=== PATIENT | female | born 1965 | race Caucasian/White ===

== ENCOUNTER 2016-03-28 19:00 | Emergency (ER) | payer BC, SELFPAY ==
[2016-03-28] MEDS ORDERED: Promethazine HCl 25 MG/ML VIAL ONE (19:40)
[2016-03-28] MEDS ORDERED: Lidocaine Viscous Sol 2% 15 ml UD Cup ONE (19:40)
[2016-03-28] MEDS ORDERED: Mag-Al Plus 1200 MG/1200 MG/120 MG/30 ML UDCUP ONE (19:40)
[2016-03-28 19:54] LABS: ALT (SGPT) 16 U/L (0-55); AST (SGOT) 18 U/L (5-34); Alkaline Phosphatase 103 U/L (40-150); Anion Gap 13 mmol/L (10-20); BUN (Urea Nitrogen) 16 mg/dL (7.0-18.7); Bilirubin, Total 0.2 mg/dL (0.2-1.2); Calc. Creatinine Clearance 0 mL/min (70-130); Calcium 8.8 mg/dL (7.8-10.44); Carbon Dioxide 21 mmol/L (22-29); Chloride 103 mmol/L (98-107); Estimated GFR-MDRD 65; Globulin 2.6 g/dL (2.4-3.5); Protein, Total 6.6 g/dL (6.0-8.3)
[2016-03-28 19:55] LABS: Troponin I Less than 0.010 ng/mL (< 0.028)
[2016-03-28 20:04] LABS: Band 2 % (5-11); Mean Platelet Volume 5.7 fL (7.4-10.4); Neutrophil 61 % (42-75); Red Blood Cell (RBC) Count 3.75 mill/uL (4.20-5.40); White Blood Cell (WBC) Count 8.1 thou/uL (4.8-10.8)
[2016-03-28] MEDS ORDERED: HYDROcodone/Acetaminophen 5/325 mg Tablet ONE (20:24)
--- NOTE | 2016-03-28 21:00 | RAD ---
SINGLE VIEW OF THE CHEST 03/28/16 INDICATION: Chest pain. IMPRESSION: The chest appears radiographically normal. COMMENTS: The lungs are clear. The cardiomediastinal silhouette is within normal limits. Osseous structures ar e similar to a comparison dated 05/08/14. POS: [facility]
[2016-03-28 21:21] LABS: Troponin I Less than 0.010 ng/mL (< 0.028)
[2016-03-28] MEDS ORDERED: Fentanyl 100 MCG/2 ML VIAL ONE (21:24)
--- NOTE | 2016-03-28 22:05 | ERRECORD ---
[facility] H[facility] CHEST PAIN (19:56 SHAN) CHIEF COMPLAINT: Patient presents for evaluation of chest pain, ongoing. HISTORIAN: History provided by patient, History provided by patient's spouse, chest pain for about 2 hours yesterday that abated; then returned about 2 hrs prior to arrival today and ongoing. From upper center chest to neck to left arm. Has been under a lot of stress as well. Hx of bipolar affective disorder and on a lot of medications. QUALITY: Pain is sharp in nature, described as stabbing. RELIEVED BY: Patient's condition relieved by nothing. HEART SCORE: Patients history is Slightly Suspicious (0), Patients ECG is normal (0), Patients age is greater than 45 and less than 65 (1), Patient has no risk factors known (0), Patients Troponin is equal to or less than 1 times the normal limit (0), Total 1. ROS (19:59 SHAN) CONSTITUTIONAL: Negative constitutional review of systems. EYES: Negative eye review of systems. ENT: Negative ears, nose, throat review of systems. CARDIOVASCULAR: Negative cardiovascular review of systems. RESPIRATORY: Negative respiratory review of systems. GI: Negative gastrointestinal review of systems. GENITOURINARY FEMALE: Negative genitourinary review of systems. MUSCULOSKELETAL: Negative musculoskeletal review of systems. SKIN: Negative skin review of systems. NEUROLOGIC: Negative neurologic review of systems. ENDOCRINE: Negative endocrine review of systems. NOTES: All systems reviewed, negative except as described above. PAST MEDICAL HISTORY (19:22 KASA) MEDICAL HISTORY: Flu vaccine not up to date, Tetanus immunization up to date, Pneumococcal vaccine not up to date, Past medical history includes musculoskeletal disorder, chronic back pain, spondylolisthesis, history of infectious disease: methicillin resistant staphylococcus aureus. FEMALE SURGICAL HISTORY: Surgical history of carpal tunnel surgery, RIGHT HAND, Surgical history of hysterectomy, Surgical history of orthopedic surgery, LEFT THUMB, Surgical history of tonsillectomy. PSYCHIATRIC HISTORY: Psychiatric history includes, anxiety, bipolar disorder, depression, MOOD AND SLEEP DISORDER,. SOCIAL HISTORY: Patient is a former drug user, Patient currently uses tobacco, smokes cigarettes, daily, Patient has smoked for 30 years, Patient smokes 1 pack per day, Lives at home, with family, Patient denies alcohol use, Patient currently uses drugs, abuses marijuana,. &a-1R&a+25V*p+0X*g0322R*c202B*c15G*c2P*p-0X&a-25V&a+1R Name: Mayte Mckeon : 1965 F50 MedRec: [id number] AcctNum: [id number] Prepared: ThuMar 28, 2016 22:21 by Interface Page 1 of 4 pMD [facility] EMERGENCY RECORD KNOWN ALLERGIES iodine morphine (bulk): Reaction: Nausea, Source: Patient, - Headache; doesn't know if ever given with antinausea meds NSAIDS (Non-Steroidal Anti-Inflammatory Drug): Reaction: Hives, Severity: Severe, Source: Patient, - "like I'm bouncing off the wall" Penicillins CURRENT MEDICATIONS gabapentin: CAPSULE : Strength - 300 mg : ORAL Patient Dose: 1 cap(s) Oral 3 times a day.2 caps at bedtime. (20:08 KASA) carBAMazepine: CAPSULE,EXTENDED RELEASE MULTIPHASE 12HR : Strength - 300 mg : ORAL Patient Dose: 1 cap(s) Oral 2 times a day. (20:10 KASA) Zoloft: TABLET : Strength - 100 mg : ORAL Patient Dose: 2 tab(s) Oral once a day. (20:12 KASA) BuSpar: TABLET : Strength - 10 mg : ORAL Patient Dose: 15 mg Oral 3 times a day. (20:12 KASA) TEGretol: TABLET, CHEWABLE : Strength - 100 mg : ORAL Patient Dose: See Notes. (20:12 KASA) traZODone: TABLET : Strength - 100 mg : ORAL Patient Dose: 100 null Oral once a day (at bedtime). (20:12 KASA) Ambien: TABLET : Strength - 10 mg : ORAL Patient Dose: 1 tab(s) Oral once a day (at bedtime). (20:13 KASA) VITAL SIGNS VITAL SIGNS: BP: 137/74, Pulse: 79, Resp: 16, Pain: 10, O2 sat: 99 on Room Air, Time: 03/28/2016 19:05. (19:05 KASA) BP: 130/70, Pulse: 74, Resp: 15, Pain: 10, O2 sat: 98 on Room Air, Time: 03/28/2016 20:00. (20:00 KASA) BP: 123/71, Pulse: 73, Resp: 14, Pain: 10, O2 sat: 97 on Room Air, Time: 03/28/2016 20:30. (20:30 KASA) BP: 132/56, Pulse: 73, Resp: 16, Pain: 9, O2 sat: 95 on Room Air, Time: 03/28/2016 21:00. (21:00 KASA) BP: 122/69, Pulse: 71, Resp: 15, O2 sat: 96 on Room Air, Time: 03/28/2016 21:30. (21:30 KASA) BP: 121/71, Pulse: 71, Resp: 20, Temp: 97.7 (Temporal), Pain: 6, O2 sat: 97 on Room Air, Time: 03/28/2016 21:57. (21:57 KASA) PHYSICAL EXAM (19:59 SHAN) CONSTITUTIONAL: Patient afebrile, Pulse normal, Blood pressure &a-1R&a+25V*p+0X*u3271D*c202B*c15G*c2P*p-0X&a-25V&a+1R Name: Mayte Mckeon : 1965 F50 MedRec: [id number] AcctNum: [id number] Prepared: ThuMar 28, 2016 22:21 by Interface Page 2 of 4 pMD [facility] EMERGENCY RECORD normal, Respiratory rate normal, Patient appears non toxic, Patient appears pain free, Patient alert and oriented to person, place and time. HEAD: Head exam included findings of head atraumatic, normocephalic. EYES: Eye exam normal, Eye exam included findings of eyelids normal to inspection, Pupils equally round and reactive to light, Extraocular muscles intact. ENT: ENT exam normal, Pharynx exam normal, Uvula exam normal, Tonsil exam normal. NECK: Neck exam normal, Neck exam included findings of normal range of motion, Trachea midline. RESPIRATORY CHEST: Respiratory and chest exam normal, Chest exam included findings of chest movement symmetrical, Chest expansion equal, Percussion normal. CARDIOVASCULAR: Cardiovascular assessment normal, Cardiovascular exam included findings of heart rate regular rate and rhythm, Heart sounds normal. ABDOMEN FEMALE: Abdominal exam normal, Abdominal exam included findings of abdomen nontender, Bowel sounds normal. BACK: Back exam normal. UPPER EXTREMITY: Upper extremity exam normal, Upper extremity exam included findings of inspection normal, Range of motion normal. LOWER EXTREMITY: Lower extremity exam normal, Lower extremity exam included findings of inspection normal, Range of motion normal. NEURO: Neuro exam normal. SKIN: Skin exam normal. PSYCHIATRIC: Psychiatric exam normal, Psychiatric exam included findings of patient oriented to person place and time, Normal affect, Judgment normal, Insight normal. MEDICATION ADMINISTRATION SUMMARY Drug Name: fentaNYL (PF) intravenous, Dose Ordered: 100 mcg, Route: IV Push, Status: Given, Time: 21:28 03/28/2016, Drug Name: *Golden, Dose Ordered: 2 tab(s), Route: Oral, Status: Given, Time: 20:28 03/28/2016, Drug Name: GI COCKTAIL, Dose Ordered: 40 mL, Route: Oral, Status: Given, Time: 20:06 03/28/2016, Drug Name: Phenergan injection, Dose Ordered: 12.5 mg, Route: IV Push, Status: Given, Time: 19:45 03/28/2016, *Additional information available in notes, Detailed record available in Medication Service section. DOCTOR NOTES TEXT: Normally healthy adult female with bipolar illness, having sharp and variable chest pain. Has been under a lot of stress. Pain central and into neck and left arm, but sharp and variable. Had it about 2 hours yesterday, resolved, then returned about 2 hours prior to arrival here. (19:59 SHAN) &a-1R&a+25V*p+0X*l0779Z*c202B*c15G*c2P*p-0X&a-25V&a+1R Name: Mayte Mckeon : 1965 F50 MedRec: [id number] AcctNum: [id number] Prepared: ThuMar 28, 2016 22:21 by Interface Page 3 of 4 pMD [facility] EMERGENCY RECORD Extensive workup negative. Pain increased with motion of the left arm and shoulder. Some radicular nature; may need evaluation for cervical radiculopathy. (21:51 SHAN) DATA REVIEWED: Lab data reviewed, Xray data reviewed, Reviewed EKG. (21:51 SHAN) PROBLEM LIST No recorded problems DIAGNOSIS (21:53 SHAN) FINAL: PRIMARY: atypical chest pain. PRESCRIPTION (21:54 SHAN) Flexeril: TABLET : 10 mg : ORAL : Quantity: 1 Unit: tab(s) Route: ORAL Schedule: every 8 hours PRN Dispense: 50 May substitute. Refills: No Refills . NOTES: No Refills. DISPOSITION PATIENT: Disposition Type: Discharge, Disposition: *Discharge Home. (21:53 ALEKSANDR) Patient left the department. (22:18 CRISITNA) Peguero: CRISTINA=PUJA Red, Emily BRANDON=MD Philip, Owen &a-1R&a+25V*p+0X*i0060X*c202B*c15G*c2P*p-0X&a-25V&a+1R Name: Mike Mayte D : 1965 F50 MedRec: [id number] AcctNum: [id number] Prepared: ThuMar 28, 2016 22:21 by Interface Page 4 of 4 pMD MTDD
--- NOTE | 2016-03-28 22:11 | PICIS ---
[facility] EMERGENCY RECORD TRIAGE (19:06 KASA) TRIAGE NOTES: Chest pains starts under left breast and radiates down left arm. (19:06 KASA) PATIENT: NAME: Mayte Mckeon, AGE: 50, GENDER: female, : Thu1965, TIME OF GREET: ThuMar 28, 2016 19:01, PREFERRED LANGUAGE: Egyptian, ETHNICITY: Not or , ECODE BILLING MAP: [facility], SSN: [id number], Zip Code: [address], KG WEIGHT: 63.50, PHONE: , , , PERSON ID: [id number], PCP: MD Bravo Katherine. (19:06 KASA) COMPLAINT: CHEST PAINS. (19:06 KASA) ADMISSION: URGENCY: 2 Emergent, ADMISSION SOURCE: Home, TRANSPORT: CAR, BED: ER -03. (19:06 KASA) PAIN: Patient complains of pain described as, dull, shooting, Location left breast /left arm, Pain is constant, Onset was 03/27/2016, No aggravating factors, No efforts tried to relieve symptoms. (19:22 KASA) SIRS SCORING: Heart Rate 55-109 (0), Temp range 96.8-101.1 (0), respiratory rate 12-24 (0), Mental Status altered: no (0). (19:22 KASA) TRIAGE SCREENING: Patient denies suicidal ideation, Patient denies presence of domestic violence. 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 (19:22 KASA) PROVIDERS: TRIAGE NURSE: Emily Red RN. (19:06 KASA) VITAL SIGNS: BP 137/74, Pulse 79, Resp 16, Pain 10, O2 Sat 99, on Room Air, Time 03/28/2016 19:05. (19:05 KASA) PREVIOUS VISIT ALLERGIES: iodine, morphine (bulk), NSAIDS (Non-Steroidal Anti-Inflammatory Drug), Penicillins. (19:06 KASA) iodine, morphine (bulk), NSAIDS (Non-Steroidal Anti-Inflammatory Drug), Penicillins. (19:22 KASA) KNOWN ALLERGIES iodine morphine (bulk): Reaction: Nausea, Source: Patient, - Headache; doesn't know if ever given with antinausea meds NSAIDS (Non-Steroidal Anti-Inflammatory Drug): Reaction: Hives, Severity: Severe, Source: Patient, - "like I'm bouncing off the wall" Penicillins CURRENT MEDICATIONS gabapentin: CAPSULE : Strength - 300 mg : ORAL Patient Dose: 1 cap(s) Oral 3 times a day.2 caps at bedtime. (20:08 KASA) carBAMazepine: CAPSULE,EXTENDED RELEASE MULTIPHASE 12HR : Strength - 300 mg : ORAL Patient Dose: 1 cap(s) Oral 2 times a day. (20:10 KASA) Zoloft: &a-1R&a+25V*p+0X*d6161Q*c202B*c15G*c2P*p-0X&a-25V&a+1R Name: Mayte Mckeon : 1965 F50 MedRec: [id number] AcctNum: [id number] Prepared: ThuMar 28, 2016 22:27 by Interface Page [address] [facility] EMERGENCY RECORD TABLET : Strength - 100 mg : ORAL Patient Dose: 2 tab(s) Oral once a day. (20:12 KASA) BuSpar: TABLET : Strength - 10 mg : ORAL Patient Dose: 15 mg Oral 3 times a day. (20:12 KASA) TEGretol: TABLET, CHEWABLE : Strength - 100 mg : ORAL Patient Dose: See Notes. (20:12 KASA) traZODone: TABLET : Strength - 100 mg : ORAL Patient Dose: 100 null Oral once a day (at bedtime). (20:12 KASA) Ambien: TABLET : Strength - 10 mg : ORAL Patient Dose: 1 tab(s) Oral once a day (at bedtime). (20:13 KASA) VITAL SIGNS VITAL SIGNS: BP: 137/74, Pulse: 79, Resp: 16, Pain: 10, O2 sat: 99 on Room Air, Time: 03/28/2016 19:05. (19:05 KASA) BP: 130/70, Pulse: 74, Resp: 15, Pain: 10, O2 sat: 98 on Room Air, Time: 03/28/2016 20:00. (20:00 KASA) BP: 123/71, Pulse: 73, Resp: 14, Pain: 10, O2 sat: 97 on Room Air, Time: 03/28/2016 20:30. (20:30 KASA) BP: 132/56, Pulse: 73, Resp: 16, Pain: 9, O2 sat: 95 on Room Air, Time: 03/28/2016 21:00. (21:00 KASA) BP: 122/69, Pulse: 71, Resp: 15, O2 sat: 96 on Room Air, Time: 03/28/2016 21:30. (21:30 KASA) BP: 121/71, Pulse: 71, Resp: 20, Temp: 97.7 (Temporal), Pain: 6, O2 sat: 97 on Room Air, Time: 03/28/2016 21:57. (21:57 KASA) NURSING ASSESSMENT: CV WITH PROCEDURES (19:06 KASA) CONSTITUTIONAL: Patient arrives ambulatory, Gait steady, History obtained from patient, Patient appears, in distress due to pain, Patient cooperative, Patient alert, Oriented to person, place and time, Skin warm, Skin dry, Skin normal in color, Mucous membranes pink, Mucous membranes moist, Patient complains of Chest pain, Chest pains starts under left breast and radiates down left arm. Started yesterday but got worse today. CARDIOVASCULAR: Cardiovascular assessment findings include heart rate normal, Heart sounds normal. RESPIRATORY/CHEST: Breath sounds clear, Respiratory assessment findings include respiratory effort easy, Respirations regular, Conversing normally, Neck and chest exam findings include trachea midline, Chest expansion equal, Chest movement symmetrical, no signs of distress, no associated cough noted, no associated fever. IV: IV established, to the right antecubital, using a 20 gauge catheter, in one attempt, IV site prepped with chloraprep, Saline lock established, Flushed with normal saline (mls): 10, Labs drawn at time of placement, labeled in the presence of the patient and sent to &a-1R&a+25V*p+0X*h8648W*c202B*c15G*c2P*p-0X&a-25V&a+1R Name: MikeOsvaldomis Monique : 1965 F50 MedRec: [id number] AcctNum: [id number] Prepared: ThuMar 28, 2016 22:27 by Interface Page [address] [facility] EMERGENCY RECORD lab, Notes: Established by PUJA Hardy 1 unsuccessful attempt by PUJA iDaz. 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 EKG: EKG indicated for complaint of chest pain, 12 lead EKG performed on the left chest, done by first LANG Lowery. NURSING PROCEDURE: BEDSIDE RADIOLOGY PATIENT IDENTIFIER: Patient actively involved in identification process, Patient's identity verified by patient stating name, Patient's identity verified by patient stating date. (19:51 KASA) Patient actively involved in identification process. (20:00 KHER) BEDSIDE RADIOLOGY: Bedside radiology performed by Nanci, Portable chest x-ray performed. (19:51 KASA) Portable chest x-ray performed. (20:00 KHER) SAFETY: Side rails up, Cart/Stretcher in lowest position, Family at bedside, Call light within reach, Hospital ID band on. (19:51 KASA) NURSING PROCEDURE: DISCHARGE NOTE (22:00 KASA) DISCHARGE: Patient discharged to home, in a wheelchair, family driving, accompanied by //partner, Summary of Care printed/ provided, Discharge instructions given to patient, Discharge instructions given to WS Ben Arnold Jr, SO/, Simple or moderate discharge teaching performed, . Educated and provided handout regarding diagnosis of: Atypical chest pain Follow up with PCP, Prescriptions given and instructions on side effects given, Name of prescription(s) given: Flexeril, Above person(s) verbalized understanding of discharge instructions and follow-up care, Patient treated and evaluated by physician, Notes: Patient ambulated to restroom prior to leaving department. Steady gait. RR even and unlabored. NAD>. BELONGINGS: Belongings and valuables with patient upon arrival to the Emergency Department include:, Belongings and valuables with patient at time of discharge include:, Belongings remain with patient, Valuables remain with patient. SAFETY: Side rails up, Cart/Stretcher in lowest position, Family at bedside, Call light within reach, Hospital ID band on. NURSING PROCEDURE: IV (21:57 KASA) FOLLOW-UP SITE 1: IV discontinued, due to patient being discharged, catheter intact, Notes: IV discontinued. Tip intact. Pressure applied along with 2x2 and tape. Patient tolerated procedure well. &a-1R&a+25V*p+0X*c9810Z*c202B*c15G*c2P*p-0X&a-25V&a+1R Name: Mayte Mckeon : 1965 F50 MedRec: [id number] AcctNum: [id number] Prepared: ThuMar 28, 2016 22:27 by Interface Page [address] [facility] EMERGENCY RECORD SAFETY: Side rails up, Cart/Stretcher in lowest position, Family at bedside, Call light within reach, Hospital ID band on. NURSING PROCEDURE: LAB DRAW (20:55 KASA) PATIENT IDENTIFIER: Patient actively involved in identification process, Patient's identity verified by patient stating name, Patient's identity verified by patient stating date. LAB DRAW: Lab draw indicated for obtaining specimens for evaluation, Subsequent lab draw performed, from vascular access device, existing IV site, R AC, After labs drawn, device flushed with saline, amount (mL) 10, Lab specimens labeled in the presence of the patient and sent to lab. SAFETY: Side rails up, Cart/Stretcher in lowest position, Family at bedside, Call light within reach, Hospital ID band on. NURSING PROCEDURE: TEACHING (22:00 KASA) TEACHING: Prescriptions given and instructions on side effects given, Name of prescription(s) given: FLEXERIL (CYCLOBENZAPRINE) is a muscle relaxer. It is used to treat muscle pain, spasms, and stiffness. SIDE EFFECTS THAT YOU SHOULD REPORT TO YOUR DOCTOR OR HEALTH VIDEO POKER FLOORMAN SOON POSSIBLE: allergic reactions like skin rash, itching or hives, swelling of the face, lips, or tongue, chest pain, fast heartbeat, hallucinations, seizures, vomiting. SIDE EFFECTS THAT USUALLY DO NOT REQUIRE MEDICAL ATTENTION (REPORT TO YOUR DOCTOR OR HEALTH VIDEO POKER FLOORMAN IF THEY CONTINUE OR ARE BOTHERSOME): Headache., Notes: Additional information about the medication you were given and/or prescribed. Tell your doctor or healthcare professional if your symptoms do not start to get better or if they get worse. YOU MAY GET DROWSY OR DIZZY. DO NOT DRIVE, USE MACHINERY, OR DO ANYTHING THAT NEEDS MENTAL ALERTNESS UNTIL YOU KNOW HOW THIS MEDICINE AFFECTS YOU. DO NOT STAND OR SIT UP QUICKLY, ESPECIALLY IF YOU ARE AN OLDER PATIENT. THIS REDUCES THE RISK OF DIZZY OR FAINTING SPELLS. ALCOHOL MAY INTERFERE WITH THE EFFECT OF THIS MEDICINE. AVOID ALCOHOLIC DRINKS. Your mouth may get dry. Drinking water, chewing sugarless gum, or sucking on hard candy may help. How to take: Take this medicine by mouth with a glass of water. Follow the directions on the prescription label. Do not cut, crush or chew this medicine. If this medicine upsets your stomach, take it with food or milk. Take your medicine at regular intervals. Do not take it more often than directed. If you miss a dose, take it as soon as you can. If it is almost time for your next dose, take only that dose. Do not take double or extra doses. Let your health care provided know if you have any of these conditions: heart disease irregular heartbeat &a-1R&a+25V*p+0X*b4804Z*c202B*c15G*c2P*p-0X&a-25V&a+1R Name: Mayte Mckeon : 1965 F50 MedRec: [id number] AcctNum: [id number] Prepared: ThuMar 28, 2016 22:27 by Interface Page [address] [facility] EMERGENCY RECORD liver disease past heart attack thyroid problem an unusual or allergic reaction to cyclobenzaprine, tricyclic antidepressants, lactose, other medicines, foods, dyes, or preservatives or trying to get breast-feeding What may interact with this medicine? Do not take this medicine with any of the following medications: certain medicines for fungal infections like fluconazole, itraconazole, ketoconazole, posaconazole, voriconazole cisapride dofetilide dronedarone droperidol flecainide grepafloxacin halofantrine levomethadyl MAOIs like Carbex, Eldepryl, Marplan, Nardil, and Parnate nilotinib pimozide probucol sertindole thioridazine ziprasidone This medicine may also interact with the following medications: abarelix alcohol certain medicines for cancer certain medicines for depression, anxiety, or psychotic disturbances certain medicines for infection like alfuzosin, chloroquine, clarithromycin, levofloxacin, mefloquine, pentamidine, troleandomycin certain medicines for irregular heart beat certain medicines used for sleep or numbness during surgery or procedure contrast dyes dolasetron guanethidine methadone octreotide ondansetron other medicines that prolong the QT interval (cause an abnormal heart rhythm) palonosetron phenothiazines like chlorpromazine, mesoridazine, prochlorperazine, thioridazine tramadol vardenafil &a-1R&a+25V*p+0X*q7243W*c202B*c15G*c2P*p-0X&a-25V&a+1R Name: Mayte Mckeon : 1965 F50 MedRec: [id number] AcctNum: [id number] Prepared: ThuMar 28, 2016 22:27 by Interface Page [address] [facility] EMERGENCY RECORD This list may not describe all possible interactions. Give your health care provider a list of all the medicines, herbs, non-prescription drugs, or dietary supplements you use. Also tell them if you smoke, drink alcohol, or use illegal drugs. Some items may interact with your medicine. PATIENT &/OR CAREGIVER VERBALIZED UNDERSTANDING OF THE TEACHING PROVIDED AND WAS ABLE TO DEMONSTRATE TEACHING EVIDENCED BY TEACH BACK. Simple or moderate teaching performed, by PUJA Bustamante, Chest Pain, Uncertain Cause Based on your exam today, the exact cause of your chest pain is not certain. Your condition does not seem serious at this time, and your pain does not appear to be coming from your heart. However, sometimes the signs of a serious problem take more time to appear. Therefore, watch for the warning signs listed below. Home Care: Rest today and avoid strenuous activity. Take any prescribed medicine as directed. Follow Up with your doctor or this facility as instructed or if you do not start to feel better within 24 hours. [NOTE: If an X-ray or EKG (cardiogram) was made, it will be reviewed by another specialist. You will be notified of any new findings that may affect your care.] Get Prompt Medical Attention if any of the following occur: A change in the type of pain: if it feels different, becomes more severe, lasts longer, or begins to spread into your shoulder, arm, neck, jaw or back Shortness of breath or increased pain with breathing Weakness, dizziness, or fainting Cough with dark colored sputum (phlegm) or blood Fever of 100.4F (38C) or higher, or as directed by your healthcare provider Swelling, pain or redness in one leg. ORDER DETAILS Order Name: FLOOR COVERINGS SALESPERSON ED, Status: Done, Time: 19:39 03/28/2016, User: CRISTINA, - Ordered for: MD Palacios Stanley, - Entered by: MD Palacios Stanley - Fri Mar 28, 2016 19:37, - Quantity: 1, Order Name: Cardiac Profile w/CKMB & Troponin - I, Status: Active, Time: 19:37 03/28/2016, User: ALEKSANDR, - Ordered for: MD Palacios Stanley, - Entered by: MD Palacios Stanley - Fri Mar 28, 2016 19:37, - Quantity: 1, Order Name: CBC with Differential, Status: Active, Time: 19:37 03/28/2016, User: ALEKSANDR, - Ordered for: MD Palacios Stanley, - Entered by: MD Palacios Stanley - Fri Mar 28, 2016 19:37, &a-1R&a+25V*p+0X*y7936O*c202B*c15G*c2P*p-0X&a-25V&a+1R Name: [place] Mayte Kayden : 1965 F50 MedRec: [id number] AcctNum: [id number] Prepared: ThuMar 28, 2016 22:27 by Interface Page [address] [facility] EMERGENCY RECORD - Quantity: 1, Order Name: Comprehensive Metabolic Panel, Status: Active, Time: 19:37 03/28/2016, User: ALEKSANDR, - Ordered for: MD Palacios Stanley, - Entered by: MD Palacios Stanley - Fri Mar 28, 2016 19:37, - Quantity: 1, Order Name: EKG 12 Lead in Emergency Room, Status: Active, Time: 19:37 03/28/2016, User: ALEKSANDR, - Ordered for: MD Palacios Stanley, - Entered by: MD Palacios Stanley - Fri Mar 28, 2016 19:37, - Quantity: 1, Order Name: ERRT Pulse Oximeter ER, Status: Active, Time: 19:37 03/28/2016, User: ALEKSANDR, - Ordered for: MD Palacios Stanley, - Entered by: MD Palacios Stanley - Nate Mar 28, 2016 19:37, - Quantity: 1, Order Name: SALINE LOCK, Status: Done, Time: 19:39 03/28/2016, User: CRISTINA, - Ordered for: MD Palacios Stanley, - Entered by: MD Palacios Stanley - Fri Mar 28, 2016 19:37, - Quantity: 1, Order Name: XR Chest 1 View Portable, Status: Active, Time: 19:37 03/28/2016, User: ALEKSANDR, - Ordered for: MD Palacios Stanley, - Entered by: MD Palacios Stanley - Nate Mar 28, 2016 19:37, - Quantity: 1. MEDICATION ADMINISTRATION SUMMARY Drug Name: fentaNYL (PF) intravenous, Dose Ordered: 100 mcg, Route: IV Push, Status: Given, Time: 21:28 03/28/2016, Drug Name: *[place], Dose Ordered: 2 tab(s), Route: Oral, Status: Given, Time: 20:28 03/28/2016, Drug Name: GI COCKTAIL, Dose Ordered: 40 mL, Route: Oral, Status: Given, Time: 20:06 03/28/2016, Drug Name: Phenergan injection, Dose Ordered: 12.5 mg, Route: IV Push, Status: Given, Time: 19:45 03/28/2016, *Additional information available in notes, Detailed record available in Medication Service section. MEDICATION SERVICE fentaNYL (PF) intravenous: Order: fentaNYL (PF) intravenous (fentanyl citrate/preservative free) - Dose: 100 mcg : IV Push Schedule: Now Ordered by: Owen Palacios MD Entered by: Owen Palacios MD ThuMar 28, 2016 21:23 , Acknowledged by: Emily Red RN ThuMar 28, 2016 21:27 Documented as given by: Emily Red RN ThuMar 28, 2016 21:28 Patient, Medication, Dose, Route and Time verified prior to &a-1R&a+25V*p+0X*w8971F*c202B*c15G*c2P*p-0X&a-25V&a+1R Name: Mayte Mckeon : 1965 F50 MedRec: [id number] AcctNum: [id number] Prepared: ThuMar 28, 2016 22:27 by Interface Page [address] [facility] EMERGENCY RECORD administration. Amount given: 100 mcg, IV SITE #1 IVP, subsequent different medication, Slowly, Catheter placement confirmed via flush prior to administration, IV site without signs or symptoms of infiltration during medication administration, No swelling during administration, No drainage during administration, IV flushed after administration, Correct patient, time, route, dose and medication confirmed prior to administration, Patient advised of actions and side-effects prior to administration, Allergies confirmed and medications reviewed prior to administration, Patient in position of comfort, Side rails up, Cart in lowest position, Family at bedside. GI COCKTAIL: Order: GI COCKTAIL - Dose: 40 mL : Oral Lidocaine Viscous (lidocaine HCl) [10 mL] MAG-AL (magnesium hydroxide/aluminum hydroxide) [30 mL] Ordered by: Owen Palacios MD Entered by: Owen Palacios MD ThuMar 28, 2016 19:38 , Acknowledged by: Emily Red RN ThuMar 28, 2016 19:39 Documented as given by: Emily Red RN ThuMar 28, 2016 20:06 Patient, Medication, Dose, Route and Time verified prior to administration. Amount given: 40 ml, Site: Medication administered P.O., Correct patient, time, route, dose and medication confirmed prior to administration, Patient advised of actions and side-effects prior to administration, Allergies confirmed and medications reviewed prior to administration, Patient in position of comfort, Side rails up, Cart in lowest position, Family at bedside. : Follow Up : No signs or symptoms of allergic reaction noted, No change in pain, No change in vomiting, Advised not to ambulate without assistance, Patient in position of comfort, Side rails up, Cart in lowest position, Family at bedside, Patient states pain has not changed. Feels like medication did not help. ERMD informed and additional medication requested. (20:18 KASA) [place]: Order: [place] (hydrocodone bitartrate/acetaminophen) - Dose: 2 tab(s) : Oral POTENTIAL ALLERGY REACTION: 'morphine (bulk) [morphine/morphine sulfate]' - Benefits outweigh risks Schedule: Now Notes: 2 Ordered by: Owen Palacios MD Entered by: Owen Palacios MD ThuMar 28, 2016 20:21 , Acknowledged by: Emily Red RN ThuMar 28, 2016 20:25 Documented as given by: Emily Red RN ThuMar 28, 2016 20:28 Patient, Medication, Dose, Route and Time verified prior to administration. Amount given: 2 tabs, Site: Medication administered P.O., Correct patient, time, route, dose and medication confirmed prior to administration, Patient advised of actions and side-effects prior to administration, Allergies confirmed and medications reviewed prior to administration, Patient in position of comfort, Side rails up, Cart in lowest position, Family at bedside. &a-1R&a+25V*p+0X*f2235L*c202B*c15G*c2P*p-0X&a-25V&a+1R Name: Mayte Mckeon : 1965 F50 MedRec: [id number] AcctNum: [id number] Prepared: ThuMar 28, 2016 22:27 by Interface Page [address] [facility] EMERGENCY RECORD Phenergan injection: Order: Phenergan injection (promethazine HCl) - Dose: 12.5 mg : IV Push Schedule: Now Ordered by: Owen Palacios MD Entered by: Owen Palacios MD ThuMar 28, 2016 19:37 , Acknowledged by: Emily Red RN ThuMar 28, 2016 19:39 Documented as given by: Emily Red RN ThuMar 28, 2016 19:45 Patient, Medication, Dose, Route and Time verified prior to administration. Amount given: 12.5 mg, Amount wasted: 12.5 mg, IV SITE #1 IVP, initial medication, Slowly, Catheter placement confirmed via flush prior to administration, IV site without signs or symptoms of infiltration during medication administration, No swelling during administration, No drainage during administration, IV flushed after administration, Correct patient, time, route, dose and medication confirmed prior to administration, Patient advised of actions and side-effects prior to administration, Allergies confirmed and medications reviewed prior to administration, Patient in position of comfort, Side rails up, Cart in lowest position, Family at bedside, 0.5 ml diluted with 10 ml of NS. : Follow Up : No signs or symptoms of allergic reaction noted, No change in pain, _IV SITE #1:_, Medication infusion discontinued, on ThuMar 28, 2016 19:48, 5 minutes, ., Total amount infused: 12.5 mg/ 10.5 ml, IV Line flushed after administration, Advised not to ambulate without assistance, Patient in position of comfort, Side rails up, Cart in lowest position, Family at bedside, Patient denies any burning, pain or discomfort with slow medication push and NS flush. (19:48 KASA) HPI CHEST PAIN (19:56 SHAN) CHIEF COMPLAINT: Patient presents for evaluation of chest pain, ongoing. HISTORIAN: History provided by patient, History provided by patient's spouse, chest pain for about 2 hours yesterday that abated; then returned about 2 hrs prior to arrival today and ongoing. From upper center chest to neck to left arm. Has been under a lot of stress as well. Hx of bipolar affective disorder and on a lot of medications. QUALITY: Pain is sharp in nature, described as stabbing. RELIEVED BY: Patient's condition relieved by nothing. HEART SCORE: Patients history is Slightly Suspicious (0), Patients ECG is normal (0), Patients age is greater than 45 and less than 65 (1), Patient has no risk factors known (0), Patients Troponin is equal to or less than 1 times the normal limit (0), Total 1. ROS (19:59 SHAN) CONSTITUTIONAL: Negative constitutional review of systems. EYES: Negative eye review of systems. &a-1R&a+25V*p+0X*p2630M*c202B*c15G*c2P*p-0X&a-25V&a+1R Name: Mayte Mckeon : 1965 F50 MedRec: [id number] AcctNum: [id number] Prepared: ThuMar 28, 2016 22:27 by Interface Page [address] [facility] EMERGENCY RECORD ENT: Negative ears, nose, throat review of systems. CARDIOVASCULAR: Negative cardiovascular review of systems. RESPIRATORY: Negative respiratory review of systems. GI: Negative gastrointestinal review of systems. GENITOURINARY FEMALE: Negative genitourinary review of systems. MUSCULOSKELETAL: Negative musculoskeletal review of systems. SKIN: Negative skin review of systems. NEUROLOGIC: Negative neurologic review of systems. ENDOCRINE: Negative endocrine review of systems. NOTES: All systems reviewed, negative except as described above. PAST MEDICAL HISTORY (19:22 KASA) MEDICAL HISTORY: Flu vaccine not up to date, Tetanus immunization up to date, Pneumococcal vaccine not up to date, Past medical history includes musculoskeletal disorder, chronic back pain, spondylolisthesis, history of infectious disease: methicillin resistant staphylococcus aureus. FEMALE SURGICAL HISTORY: Surgical history of carpal tunnel surgery, RIGHT HAND, Surgical history of hysterectomy, Surgical history of orthopedic surgery, LEFT THUMB, Surgical history of tonsillectomy. PSYCHIATRIC HISTORY: Psychiatric history includes, anxiety, bipolar disorder, depression, MOOD AND SLEEP DISORDER,. SOCIAL HISTORY: Patient is a former drug user, Patient currently uses tobacco, smokes cigarettes, daily, Patient has smoked for 30 years, Patient smokes 1 pack per day, Lives at home, with family, Patient denies alcohol use, Patient currently uses drugs, abuses marijuana,. PHYSICAL EXAM (19:59 SHAN) CONSTITUTIONAL: Patient afebrile, Pulse normal, Blood pressure normal, Respiratory rate normal, Patient appears non toxic, Patient appears pain free, Patient alert and oriented to person, place and time. HEAD: Head exam included findings of head atraumatic, normocephalic. EYES: Eye exam normal, Eye exam included findings of eyelids normal to inspection, Pupils equally round and reactive to light, Extraocular muscles intact. ENT: ENT exam normal, Pharynx exam normal, Uvula exam normal, Tonsil exam normal. NECK: Neck exam normal, Neck exam included findings of normal range of motion, Trachea midline. RESPIRATORY CHEST: Respiratory and chest exam normal, Chest exam included findings of chest movement symmetrical, Chest expansion equal, Percussion normal. CARDIOVASCULAR: Cardiovascular assessment normal, Cardiovascular exam included findings of heart rate regular rate and rhythm, Heart sounds normal. ABDOMEN FEMALE: Abdominal exam normal, Abdominal exam included &a-1R&a+25V*p+0X*x3197J*c202B*c15G*c2P*p-0X&a-25V&a+1R Name: Mayte Mckeon : 1965 F50 MedRec: [id number] AcctNum: [id number] Prepared: ThuMar 28, 2016 22:27 by Interface Page [address] [facility] EMERGENCY RECORD findings of abdomen nontender, Bowel sounds normal. BACK: Back exam normal. UPPER EXTREMITY: Upper extremity exam normal, Upper extremity exam included findings of inspection normal, Range of motion normal. LOWER EXTREMITY: Lower extremity exam normal, Lower extremity exam included findings of inspection normal, Range of motion normal. NEURO: Neuro exam normal. SKIN: Skin exam normal. PSYCHIATRIC: Psychiatric exam normal, Psychiatric exam included findings of patient oriented to person place and time, Normal affect, Judgment normal, Insight normal. EVENTS TRANSFER: Triage to Emergency Emergency Room -03. (ThuMar 28, 2016 19:06 CRISTINA) Removed from Emergency Emergency Room -03. (22:18 CRISTINA) DOCTOR NOTES TEXT: Normally healthy adult female with bipolar illness, having sharp and variable chest pain. Has been under a lot of stress. Pain central and into neck and left arm, but sharp and variable. Had it about 2 hours yesterday, resolved, then returned about 2 hours prior to arrival here. (19:59 SHAN) Extensive workup negative. Pain increased with motion of the left arm and shoulder. Some radicular nature; may need evaluation for cervical radiculopathy. (21:51 SHAN) DATA REVIEWED: Lab data reviewed, Xray data reviewed, Reviewed EKG. (21:51 SHAN) PROBLEM LIST No recorded problems DIAGNOSIS (21:53 SHAN) FINAL: PRIMARY: atypical chest pain. DISPOSITION PATIENT: Disposition Type: Discharge, Disposition: *Discharge Home. (21:53 SHAN) Patient left the department. (22:18 CRISTINA) INSTRUCTION (21:55 SHAN) DISCHARGE: ATYPICAL CHEST PAIN UNKNOWN CAUSE. FOLLOWUP: MD Shelly, Sharon, [facility], [address], [address], [facility] [address], . SPECIAL: 1. followup with regular provider 2. if the pain continues to run down the left arm; an mri of c-spine might be indicated and possible other cardiac tests 3. return if problem worsens 4. try the flexeril as a muscle relaxant; but don't use others with it (the skelaxin that is on the records). &a-1R&a+25V*p+0X*m5918X*c202B*c15G*c2P*p-0X&a-25V&a+1R Name: Mayte Mckeon : 1965 F50 MedRec: [id number] AcctNum: [id number] Prepared: ThuMar 28, 2016 22:27 by Interface Page [address] [facility] EMERGENCY RECORD PRESCRIPTION (21:54 SHAN) Flexeril: TABLET : 10 mg : ORAL : Quantity: 1 Unit: tab(s) Route: ORAL Schedule: every 8 hours PRN Dispense: 50 May substitute. Refills: No Refills . NOTES: No Refills. IMAGING (20:24 KASA) *EKG: Image captured from scanner. ADMIN (21:55 SHAN) DIGITAL SIGNATURE: MD Palacios Stanley. RESULTS RADIOLOGY: XR Chest 1 View Portable Observe DT: ThuMar 28, 2016 19:38, CXRP SINGLE VIEW OF THE CHEST 03/28/16 INDICATION: Chest pain. IMPRESSION: The chest appears radiographically normal. COMMENTS: The lungs are clear. The cardiomediastinal silhouette is within normal limits. Osseous structures ar e similar to a comparison dated 05/08/14. POS: [facility] . (21:12 ALEKSANDR) LABORATORY: Comprehensive Metabolic Panel Collection DT: ThuMar 28, 2016 19:37, *Sodium 133 - L mmol/L, Range (136-145), Potassium 3.8 mmol/L, Range (3.5-5.1), Chloride 103 mmol/L, Range (98-107), *Carbon Dioxide 21 - L mmol/L, Range (22-29), Anion Gap 13 mmol/L, Range (10-20), BUN (Urea Nitrogen) 16 mg/dL, Range (7.0-18.7), Creatinine 0.92 mg/dL, Range (0.6-1.1), Estimated GFR-MDRD 65 , Reference Range for Estimated GFR: Greater than 90, mL/min/1.73 m2 NOTE: The MDRD equation has not been validated for use, with the elderly (over 70 years of age), women, patients with, serious comorbid condition or persons with extremes of body size, muscle, mass, or nutritional status. , &a-1R&a+25V*p+0X*w9841Y*c202B*c15G*c2P*p-0X&a-25V&a+1R Name: Mayte Mckeon : 1965 F50 MedRec: [id number] AcctNum: [id number] Prepared: ThuMar 28, 2016 22:27 by Interface Page [address] [facility] EMERGENCY RECORD Glucose 94 mg/dL, Range (70-105), Calcium 8.8 mg/dL, Range (7.8-10.44), Bilirubin, Total 0.2 mg/dL, Range (0.2-1.2), Protein, Total 6.6 g/dL, Range (6.0-8.3), NOTE: Plasma values are generally 0.3 to 0.5 g/dL higher than serum values, due to the presence of fibrinogen. , Albumin 4.0 g/dL, Range (3.5-5.0), Globulin 2.6 g/dL, Range (2.4-3.5), Alb/Glob Ratio 1.5 g/dL, Range (1.2-2.2), Alkaline Phosphatase 103 U/L, Range (40-150), AST (SGOT) 18 U/L, Range (5-34), ALT (SGPT) 16 U/L, Range (0-55). (19:56 ALEKSANDR) Cardiac Profile w/CKMB & TropI Collection DT: ThuMar 28, 2016 19:37, CKMB 2.0 ng/mL, Range (0-6.6), Troponin I Less than 0.010 ng/mL, Range (< 0.028), Reference Range , 0.00 - 0.028 ng/mL Negative 0.029 - 0.29 ng/mL , Indeterminate Greater or Equal to 0.3 ng/mL Strongly suggests DC , . (20:05 ALEKSANDR) CBC with Differential Collection DT: ThuMar 28, 2016 19:37, White Blood Cell (WBC) Count 8.1 thou/uL, Range (4.8-10.8), *Red Blood Cell (RBC) Count 3.75 - L mill/uL, Range (4.20-5.40), *Hemoglobin 11.9 - L g/dL, Range (12.0-16.0), *Hematocrit 35.0 - L %, Range (36.0-47.0), Mean Corpuscular Volume 93.3 fl, Range (81.0-99.0), *Mean Corpuscular Hemoglobin 31.6 - H pg, Range (27.0-31.0), Mean Corpuscular HGB CONC 33.9 g/dL, Range (32.0-36.0), RBC Distribution Width 11.6 %, Range (11.5-14.5), Platelet Count 233 thou/uL, Range (130-400), *Mean Platelet Volume 5.7 - L fL, Range (7.4-10.4), Neutrophil 61 %, Range (42-75), *Band 2 - L %, Range (5-11), Lymphocytes 29 %, Range (21-51), Monocytes 6 %, Range (0-10), Eosinophils 1 %, Range (0-10), Basophils 1 %, Range (0-2), PLT Morphology Comment Appears Adequate , RBC Morphology Normal . (20:11 SHAN) CK (CPK) Collection DT: ThuMar 28, 2016 20:58, CK (CPK) 164 U/L, Range (29-168). (21:24 SHAN) Cardiac Profile w/CKMB & TropI Collection DT: ThuMar 28, 2016 20:58, CKMB 2.0 ng/mL, Range (0-6.6), Troponin I Less than 0.010 ng/mL, Range (< 0.028), Reference Range , 0.00 - 0.028 ng/mL Negative 0.029 - 0.29 ng/mL , Indeterminate &a-1R&a+25V*p+0X*l7813L*c202B*c15G*c2P*p-0X&a-25V&a+1R Name: Mayte Mckeon : 1965 F50 MedRec: [id number] AcctNum: [id number] Prepared: ThuMar 28, 2016 22:27 by Interface Page 13 of 14 pMD [facility] EMERGENCY RECORD Greater or Equal to 0.3 ng/mL Strongly suggests DC , . (21:33 ALEKSANDR) Peguero: CRISTINA=PUJA Red, Emily BURCH=TAYLA Conteh Kayce SHAN=MD Philip, Owen &a-1R&a+25V*p+0X*j7823S*c202B*c15G*c2P*p-0X&a-25V&a+1R Name: Mayte Mckeon : 1965 F50 MedRec: [id number] AcctNum: [id number] Prepared: ThuMar 28, 2016 22:27 by Interface Page 14 of 14 pMD [facility]
== END 2016-03-28 22:00 | disposition home or self-care (01) ==
LOC: NAV ERS 19:00
DX: R07.89 Other chest pain (principal); F31.9 Bipolar disorder, unspecified; F41.9 Anxiety disorder, unspecified; F17.210 Nicotine dependence, cigarettes, uncomplicated; Z79.899 Other long term (current) drug therapy
CPT/HCPCS: 71010; 80053; 82553; 84484; 85025; 93005; 94760; 96374; 96375; J1170; J2550; J3010

== ENCOUNTER 2016-07-01 12:35 | Outpatient (CLI) | payer OTHER ==
--- NOTE | 2016-07-01 14:18 | RAD ---
THREE VIEWS LUMBOSACRAL SPINE: Comparison: 07-26-15 History: Low back pain. FINDINGS: Three views of the lumbosacral spine shows grade II anterolisthesis of L5 on S1. There may be pars d efects at L5. The other vertebral bodies demonstrate normal height and alignment without fracture or other areas of subluxation. Posterior facet arthrosis is seen in the lower lumbosacral spine. IMPRESSION: Stable spondylolisthesis of L5 on S1. POS: [place]
== END 2016-07-01 12:36 | disposition home or self-care (01) ==
LOC: NAV RAD 12:35
PROVIDERS: ATTEND Family Medicine
DX: Z02.71 Encounter for disability determination (principal); M43.17 Spondylolisthesis, lumbosacral region
CPT/HCPCS: 72100

== ENCOUNTER 2016-12-23 12:40 | Emergency (ER) | payer OTHER, SELFPAY ==
[2016-12-23] MEDS ORDERED: Fentanyl 100 MCG/2 ML VIAL ONE ×2 (13:07→15:30)
[2016-12-23] MEDS ORDERED: Promethazine HCl 25 MG/ML VIAL ONE (13:07)
[2016-12-23] MEDS ORDERED: Sodium Chloride 0.9% 1,000 ML ONE (13:07)
[2016-12-23 13:16] LABS: #Basophils 0.1 thou/uL (0.0-0.2); #Eosinphils 0.1 thou/uL (0.0-0.7); #Monocytes 0.9 thou/uL (0.11-0.59); #Neutrophils 8.9 thou/uL (1.40-6.50); %Lymphocytes 22.8 % (21.0-51.0); %Monocytes 7.1 % (0.0-10.0); %Neutrophils 68.1 % (42.0-75.0); Hemoglobin 13.2 g/dL (12.0-16.0); Mean Corpuscular Hemoglobin 31.5 pg (27.0-31.0); Mean Corpuscular Volume 95.7 fl (81.0-99.0); Mean Platelet Volume 6.3 fL (7.4-10.4); Platelet Count 348 thou/uL (130-400); RBC Distribution Width 12.3 % (11.5-14.5); Red Blood Cell (RBC) Count 4.18 mill/uL (4.20-5.40); White Blood Cell (WBC) Count 13.1 thou/uL (4.8-10.8)
--- NOTE | 2016-12-23 13:25 | CT ---
HEAD CT WITHOUT CONTRAST: Date: 12-23-16 Comparison: 12-11-03 History: Dizziness, headache, vomiting, high blood pressure. Technique: Serial axial CT imaging at 5 mm intervals from vertex through skull base without contrast . FINDINGS: The imaged paranasal sinuses and mastoid air cells are well aerated. There is no displaced calvarial fracture. No intracranial hemorrhage, midline shift, or ventricular enlargement. IMPRESSION: No intracranial hemorrhage or displaced calvarial fracture. POS: [facility]
[2016-12-23 13:31] LABS: CKMB 0.9 ng/mL (0-6.6); Troponin I Less than 0.010 ng/mL (< 0.028)
[2016-12-23 13:32] LABS: ALT (SGPT) 15 U/L (8-55); AST (SGOT) 18 U/L (5-34); Albumin 4.8 g/dL (3.5-5.0); Alkaline Phosphatase 131 U/L (40-150); Anion Gap 19 mmol/L (10-20); BUN (Urea Nitrogen) 8 mg/dL (7.0-18.7); Bilirubin, Total 0.4 mg/dL (0.2-1.2); Calc. Creatinine Clearance 0 mL/min (70-130); Calcium 9.9 mg/dL (7.8-10.44); Carbon Dioxide 17 mmol/L (22-29); Chloride 100 mmol/L (98-107); Estimated GFR-MDRD 73; Globulin 3.5 g/dL (2.4-3.5); Glucose 100 mg/dL (70-105); Protein, Total 8.3 g/dL (6.0-8.3); Sodium 132 mmol/L (136-145)
[2016-12-23 14:29] LABS: Bilirubin Negative (Negative); Blood, Urine Negative (Negative); Clarity Clear (Clear); Glucose, Urine (Dipstick) Negative (Negative); Leukocyte Small (Negative); Nitrite Positive (Negative); Protein, Urine (Dipstick) Negative (Neg-Trace); Specific Gravity, Urine 1.015 (1.005-1.030); Urobilinogen 0.2 mg/dL (0.2-1.0)
[2016-12-23 14:32] LABS: Bacteria/HPF 3+ HPF (None Seen); Other Microscopic Description NO; Pregnancy Test - Urine (BHCG) Negative (Negative); Pregu Control Background? CLEAR/WHITE (CLR/WHITE); Pregu Control Bar Appear? YES (CONTROL BAR); RBC/HPF None Seen HPF (0-3); Specific Gravity 1.015 (1.002-1.036); Squamous Epithelial 0-3 HPF (0-3)
[2016-12-23 14:35] LABS: Amphetamine Not Detected (NotDetected); Barbiturates Screen Not Detected (NotDetected); Benzodiazepine Screen Not Detected (NotDetected); Cocaine Metabolite Screen Not Detected (NotDetected); Medtox Control Line Valid? VALID (VALID); Methadone Not Detected (NotDetected); Methamphetamine Not Detected (NotDetected); Opiate Screen Not Detected (NotDetected); Oxycodone Screen Not Detected (NotDetected); Phencyclidine (PCP) Not Detected (NotDetected); THC/Cannabinoid Screen Detected (NotDetected); Tricyclic Screen Not Detected (NotDetected)
[2016-12-23] MEDS ORDERED: Acetaminophen 500 MG TAB ONE (14:42)
[2016-12-23] MEDS ORDERED: diphenhydrAMINE 50 MG/ML VIAL ONE (14:42)
== END 2016-12-23 16:00 | disposition home or self-care (01) ==
LOC: NAV ERS 12:40
DX: I10 Essential (primary) hypertension (principal); F12.10 Cannabis abuse, uncomplicated; N39.0 Urinary tract infection, site not specified; F41.9 Anxiety disorder, unspecified; F31.9 Bipolar disorder, unspecified; G47.9 Sleep disorder, unspecified; F17.210 Nicotine dependence, cigarettes, uncomplicated; Z79.899 Other long term (current) drug therapy
CPT/HCPCS: 70450; 80053; 80306; 81003; 81015; 81025; 82553; 84484; 85025; 93005; 96361; 96374; 96375; 96376; J1200; J2550; J3010; J7050

== ENCOUNTER → 2016-12-27 | Emergency (ER) | payer SELFPAY ==
[~2016-12-27] MED LIST: Dexamethasone 20 MG/5 ML VIAL ONE; Fentanyl 100 MCG/2 ML VIAL ONE; Lidocaine 1% 20 ML MDV ONE; Lorazepam 2 MG/ML VIAL ONE; Promethazine HCl 25 MG/ML VIAL ONE; diphenhydrAMINE 50 MG/ML VIAL ONE
--- NOTE | 2016-12-27 19:13 | CT ---
EXAM: NONCONTRAST HEAD CT 12/27/16 COMPARISON: 12/23/16 HISTORY: Dizziness. Headache. Hypertension. TECHNIQUE: Noncontrast head CT is performed from skull base to skull vertex. FINDINGS: No parenchymal hemorrhage. No extra-axial hematoma. No midline shift. Basilar cisterns are patent. B rain volume, age appropriate. Cortical stephenson-white matter differentiation is preserved. The ventricles and sulci are patent and symmetric. The calvarium is intact. Minimal mucosal thickeni ng of the ethmoid air cells, right sphenoid sinus, and right maxillary sinus. Adequate mastoid air c ell aeration. IMPRESSION: No acute intracranial process. POS: [facility]
[2016-12-27 19:23] LABS: PTT 28.1 SEC (22.9-36.1); Prothrombin Time 13.3 SEC (12.0-14.7)
[2016-12-27 19:26] LABS: #Basophils 0.2 thou/uL (0.0-0.2); #Eosinphils 0.4 thou/uL (0.0-0.7); #Lymphocytes 2.7 thou/uL (1.20-3.40); #Monocytes 0.9 thou/uL (0.11-0.59); #Neutrophils 5.4 thou/uL (1.40-6.50); %Basophils 1.8 % (0.0-1.0); %Eosinophils 4.4 % (0.0-10.0); %Lymphocytes 28.6 % (21.0-51.0); %Monocytes 8.8 % (0.0-10.0); %Neutrophils 56.4 % (42.0-75.0); Hemoglobin 11.5 g/dL (12.0-16.0); Mean Corpuscular HGB CONC 34.1 g/dL (32.0-36.0); Mean Corpuscular Hemoglobin 32.6 pg (27.0-31.0); Mean Corpuscular Volume 95.8 fl (81.0-99.0); Mean Platelet Volume 5.8 fL (7.4-10.4); Platelet Count 265 thou/uL (130-400); RBC Distribution Width 12.1 % (11.5-14.5); Red Blood Cell (RBC) Count 3.53 mill/uL (4.20-5.40); White Blood Cell (WBC) Count 9.6 thou/uL (4.8-10.8)
[2016-12-27 19:31] LABS: ALT (SGPT) 11 U/L (8-55); AST (SGOT) 18 U/L (5-34); Albumin 4.1 g/dL (3.5-5.0); Alkaline Phosphatase 111 U/L (40-150); Anion Gap 12 mmol/L (10-20); BUN (Urea Nitrogen) 7 mg/dL (7.0-18.7); Bilirubin, Total 0.2 mg/dL (0.2-1.2); Calc. Creatinine Clearance 0 mL/min (70-130); Calcium 8.9 mg/dL (7.8-10.44); Carbon Dioxide 24 mmol/L (22-29); Chloride 103 mmol/L (98-107); Estimated GFR-MDRD Greater than 90; Globulin 2.7 g/dL (2.4-3.5); Glucose 77 mg/dL (70-105); Potassium 3.7 mmol/L (3.5-5.1); Protein, Total 6.8 g/dL (6.0-8.3); Sodium 135 mmol/L (136-145)
[2016-12-27 20:37] LABS: Blood Culture - Extra Bottle RECEIVED; Blue RECEIVED; Gold RECEIVED; Green RECEIVED; Lavender RECEIVED; SST 8.5mL RECEIVED
[2016-12-27 21:33] LABS: CSF Source CSF; Clarity Clear (Clear); RBC Count - Manual 1 /cumm (None Seen); Tube # 1; WBC/NonHematics Count - Manual 1 /cumm (0-5)
== END ==
LOC: NAV ERS 18:00
DX: R51 Headache (principal); R53.1 Weakness; R44.1 Visual hallucinations; F41.9 Anxiety disorder, unspecified; F31.9 Bipolar disorder, unspecified; G47.9 Sleep disorder, unspecified; F39 Unspecified mood [affective] disorder; F17.210 Nicotine dependence, cigarettes, uncomplicated; Z79.899 Other long term (current) drug therapy
CPT/HCPCS: 62270; 70450; 80053; 82945; 84157; 85025; 85610; 85730; 89051; 96361; 96372; 96374; 96375; 96376; J1100; J1200; J2001; J2060; J2550; J3010

== ENCOUNTER 2017-03-29 12:01 | Emergency (ER) | payer OTHER, SELFPAY ==
[2017-03-29] MEDS ORDERED: Lidocaine 1% 20 ML MDV ONE (12:25)
[2017-03-29] MEDS ORDERED: Acetaminophen 500 MG TAB ONE (12:47)
[2017-03-29] MEDS ORDERED: Bacitracin Zinc 1 Packet ONE (12:48)
--- NOTE | 2017-03-29 14:15 | RAD ---
MANDIBLE: Date: 03/29/17 HISTORY: Trauma. Laceration to chin and pain. FINDINGS: AP, lateral, and oblique views mandible obtained. The mandible is intact. No evidence of mandibular f racture seen. IMPRESSION: No evidence of mandibular fracture. POS: [facility]
== END 2017-03-29 13:25 | disposition home or self-care (01) ==
LOC: NAV ERS 12:01
DX: S01.81XA Laceration without foreign body of other part of head, initial encounter (principal); S09.93XA Unspecified injury of face, initial encounter; I10 Essential (primary) hypertension; F17.210 Nicotine dependence, cigarettes, uncomplicated; Z79.899 Other long term (current) drug therapy; W01.0XXA Fall on same level from slipping, tripping and stumbling without subsequent striking against object, initial encounter
CPT/HCPCS: 12013; 70110; J2001

== ENCOUNTER 2018-02-09 15:12 | Emergency (ER) | payer OTHER ==
[2018-02-09] MEDS ORDERED: Ondansetron ODT 4 MG TAB ONE (15:36)
== END 2018-02-09 15:51 | disposition home or self-care (01) ==
LOC: NAV ERS 15:12
DX: J06.9 Acute upper respiratory infection, unspecified (principal); F31.9 Bipolar disorder, unspecified; F43.10 Post-traumatic stress disorder, unspecified; I10 Essential (primary) hypertension; M47.9 Spondylosis, unspecified; Z79.899 Other long term (current) drug therapy
CPT/HCPCS: 99283; Q0162

== ENCOUNTER 2021-10-22 13:48 | Emergency (ER) | payer BC, SELFPAY ==
[2021-10-22] MEDS ORDERED: HYDROcodone/Acetaminophen 10/325 mg Tablet ONE (15:05)
== END 2021-10-22 15:25 | disposition home or self-care (01) ==
LOC: NAV ERS 13:48
DX: S82.841A Displaced bimalleolar fracture of right lower leg, initial encounter for closed fracture (principal); I10 Essential (primary) hypertension; E03.9 Hypothyroidism, unspecified; F17.210 Nicotine dependence, cigarettes, uncomplicated; Z79.899 Other long term (current) drug therapy; W19.XXXA Unspecified fall, initial encounter
CPT/HCPCS: 29515; 70450; 72125

== ENCOUNTER 2021-11-03 12:44 | Emergency (ER) | payer SELFPAY ==
[2021-11-03] MEDS ORDERED: Ketorolac Tromethamine 30 MG/ML VIAL ONE (13:21)
== END 2021-11-03 13:29 | disposition home or self-care (01) ==
LOC: NAV ERS 12:44
DX: Z47.89 Encounter for other orthopedic aftercare (principal); S82.841D Displaced bimalleolar fracture of right lower leg, subsequent encounter for closed fracture with routine healing; I10 Essential (primary) hypertension; E03.9 Hypothyroidism, unspecified; F17.210 Nicotine dependence, cigarettes, uncomplicated; Z79.899 Other long term (current) drug therapy; X58.XXXD Exposure to other specified factors, subsequent encounter
CPT/HCPCS: 96372; 99282; J1885

== ENCOUNTER 2022-10-03 18:40 | Emergency (ER) | payer SELFPAY ==
[2022-10-03] MEDS ORDERED: Acetaminophen 500 MG TAB ONE (20:00)
== END 2022-10-03 20:15 | disposition home or self-care (01) ==
LOC: NAV ERS 18:40
DX: N64.4 Mastodynia (principal); I10 Essential (primary) hypertension; E03.9 Hypothyroidism, unspecified; F17.210 Nicotine dependence, cigarettes, uncomplicated; Z79.899 Other long term (current) drug therapy
CPT/HCPCS: 99283

== ENCOUNTER → 2022-10-08 | Emergency (ER) | payer SELFPAY | LOC: NAV ERS 19:35 | DX: Z53.21 Procedure and treatment not carried out due to patient leaving prior to being seen by health care provider (principal) ==

== ENCOUNTER 2023-04-05 09:50 | Emergency (ER) | payer SELFPAY ==
[~2023-04-05 09:50] MED LIST changes: -Dexamethasone 20 MG/5 ML VIAL ONE; -Fentanyl 100 MCG/2 ML VIAL ONE; +Iopamidol 370 76% 100 ML VIAL ONE; -Lidocaine 1% 20 ML MDV ONE; -Lorazepam 2 MG/ML VIAL ONE; -Promethazine HCl 25 MG/ML VIAL ONE; -diphenhydrAMINE 50 MG/ML VIAL ONE
[2023-04-05 10:19] LABS: #Basophils 0.1 thou/uL (0.0-0.2); #Eosinphils 0.3 thou/uL (0.0-0.7); #Lymphocytes 1.9 thou/uL (1.20-3.40); #Monocytes 0.4 thou/uL (0.11-0.59); #Neutrophils 5.3 thou/uL (1.40-6.50); %Basophils 1.2 % (0.0-1.0); %Eosinophils 4.2 % (0.0-10.0); %Lymphocytes 23.4 % (21.0-51.0); %Monocytes 5.3 % (0.0-10.0); %Neutrophils 65.9 % (42.0-75.0); Hematocrit 36.2 % (36.0-47.0); Hemoglobin 12.1 g/dL (12.0-16.0); Mean Corpuscular HGB CONC 33.4 g/dL (32.0-36.0); Mean Corpuscular Hemoglobin 31.7 pg (27.0-31.0); Mean Corpuscular Volume 95.1 fl (78.0-98.0); Mean Platelet Volume 6.6 fL (7.4-10.4); Platelet Count 273 10x3/uL (130-400); RBC Distribution Width 12.4 % (11.5-14.5); Red Blood Cell (RBC) Count 3.81 mill/uL (4.20-5.40)
[2023-04-05] MEDS ORDERED: Ondansetron PF 4 MG/2 ML Vial ONE (10:21)
[2023-04-05] MEDS ORDERED: Lidocaine 2% Viscous 100 ML BOTTLE ONE (10:23)
[2023-04-05] MEDS ORDERED: Mag-Al Plus 1200/1200/120 MG (30 mL) UDCUP ONE (10:23)
[2023-04-05 10:33] LABS: ALT (SGPT) 11 U/L (8-55); AST (SGOT) 16 U/L (5-34); Albumin 4.1 g/dL (3.5-5.0); Alkaline Phosphatase 82 U/L (40-110); Anion Gap 15 mmol/L (10-20); BUN (Urea Nitrogen) 13 mg/dL (9.8-20.1); Bilirubin, Total 0.2 mg/dL (0.2-1.2); Calc. Creatinine Clearance 0 mL/min (70-130); Calcium 9.7 mg/dL (7.8-10.44); Carbon Dioxide 20 mmol/L (22-29); Chloride 105 mmol/L (98-107); Estimated GFR 81; Glucose 190 mg/dL (70-105); Lipase 18 U/L (8-78); Potassium 3.6 mmol/L (3.5-5.1); Protein, Total 7.1 g/dL (6.0-8.3); Sodium 136 mmol/L (136-145)
[2023-04-05] MEDS ORDERED: Dicyclomine 20 MG/2 ML VIAL ONE (11:06)
[2023-04-05] MEDS ORDERED: HYDROcodone/Acetaminophen 5/325 mg Tablet ONE (11:28)
== END 2023-04-05 11:35 | disposition home or self-care (01) ==
LOC: NAV ERS 09:50
DX: R10.13 Epigastric pain (principal); R11.2 Nausea with vomiting, unspecified; E03.9 Hypothyroidism, unspecified; E78.00 Pure hypercholesterolemia, unspecified; I10 Essential (primary) hypertension; F17.210 Nicotine dependence, cigarettes, uncomplicated; Z79.890 Hormone replacement therapy; Z79.899 Other long term (current) drug therapy; Z55.6 Problems related to health literacy
CPT/HCPCS: 74177; 80053; 83690; 85025; 93005; 96372; 96374; J2405

== ENCOUNTER 2024-04-25 18:31 | Emergency (ER) | payer BC | END 2024-04-25 19:25 | disposition home or self-care (01) | LOC: NAV ERS 18:31 | DX: T82.594A Other mechanical complication of infusion catheter, initial encounter (principal); E03.9 Hypothyroidism, unspecified; I10 Essential (primary) hypertension; F17.210 Nicotine dependence, cigarettes, uncomplicated; Z79.899 Other long term (current) drug therapy; Y82.8 Other medical devices associated with adverse incidents | CPT/HCPCS: 99283 ==